=== PATIENT | male | born 1980 | race Caucasian/White ===

== ENCOUNTER 2018-05-04 13:41 | Emergency (ER) | payer SELFPAY ==
[~2018-05-04] VITALS: Ht 177.8 cm; Wt 86.8 kg
[2018-05-04 13:46] VITALS: BP 118/77
--- NOTE | 2018-05-04 13:52 | NUR ---
PT HAS RAISED SKIN SPOTS, ERYTHEMA IN GROIN AREA/INNER THIGH AREA
[2018-05-04 14:44] LABS: BASOPHILS # (AUTO) 0.08 x10^3/uL (0-0.1); BASOPHILS % (AUTO) 1 % (0-1); EOSINOPHILS # (AUTO) 0.11 x10^3/uL (0-0.4); EOSINOPHILS % (AUTO) 1 % (1-7); LYMPHOCYTES # (AUTO) 1.99 x10^3/uL (1-3.4); LYMPHOCYTES % (AUTO) 23 % (22-44); MD NO; MEAN CORPUSCULAR HEMOGLOBIN 31.2 pg (27.5-34.5); MEAN CORPUSCULAR HGB CONC 33.1 g/dL (33.2-36.2); MEAN CORPUSCULAR VOLUME 94.5 fL (81-97); MEAN PLATELET VOLUME 8.1 fL (7.4-10.4); MONOCYTES # (AUTO) 0.71 x10^3/uL (0.2-0.8); MONOCYTES % (AUTO) 8 % (2-9); NEUTROPHILS # (AUTO) 5.89 x10^3/uL (1.8-6.8); NEUTROPHILS % (AUTO) 67 % (42-75); PLATELET COUNT 325 x10^3/uL (130-400); RED BLOOD COUNT 4.78 x10^6/uL (4.38-5.82); RED CELL DISTRIBUTION WIDTH 13.2 % (9.4-14.8)
--- NOTE | 2018-05-04 14:52 | NUR ---
AFTER PA AND MD EXAM, LABS DRAWN
[2018-05-04 14:55] LABS: ALBUMIN 3.8 g/dL (3.4-5.0); ANION GAP 3 mmol/L (5-15); CALCIUM 8.7 mg/dL (8.5-10.1); CHLORIDE 112 mmol/L (98-107)
[2018-05-04 14:59] LABS: ALANINE AMINOTRANSFERASE 48 U/L (12-78); ALKALINE PHOSPHATASE 59 U/L (45-117); BILIRUBIN,TOTAL 0.4 mg/dL (0.2-1.0); CREATININE 1.02 mg/dL (0.7-1.3); TOTAL PROTEIN 7.4 g/dL (6.4-8.2)
== END 2018-05-04 15:30 | disposition home or self-care (01) ==
LOC: ED 14:24
DX: L73.9 Follicular disorder, unspecified (principal)
CPT/HCPCS: 36415; 80053; 85025; 86592; 87806; 99283; G0475

== ENCOUNTER 2019-01-15 19:06 | Emergency (ER) | payer MEDICAID ==
[~2019-01-15] VITALS: Ht 177.8 cm; Wt 67.4 kg
[2019-01-15 19:11] VITALS: BP 117/66
== END 2019-01-15 20:11 | disposition home or self-care (01) ==
LOC: ED 20:00
DX: S39.012A Strain of muscle, fascia and tendon of lower back, initial encounter (principal); F17.200 Nicotine dependence, unspecified, uncomplicated; X58.XXXA Exposure to other specified factors, initial encounter; Y93.89 Activity, other specified; Y92.89 Other specified places as the place of occurrence of the external cause; Y99.8 Other external cause status
CPT/HCPCS: 99283; J7512

== ENCOUNTER 2019-10-18 07:40 | Emergency (ER) | payer MEDICAID ==
[~2019-10-18] VITALS: Ht 177.8 cm; Wt 68.0 kg
[2019-10-18] MEDS ORDERED: SODIUM CHLORIDE 0.9% 1,000 ML IV ONE (07:43)
--- NOTE | 2019-10-18 07:49 | NUR ---
derick. report received from [facility]. pt peed in this am and c/o sudden onset of right sided flank pain. denies any other sx. fentanyl/zofran given bale piler. pt's aox4. resps even and unlabored. pt screeming for pain in room. edmd at bedside evaluating at this time. bp/spo2 monitors in place. call light within reach.
[2019-10-18] MEDS ORDERED: KETOROLAC 30 MG/1 ML ONE (07:51)
[2019-10-18] MEDS ORDERED: SODIUM CHLORIDE FLUSH 10ML SYR IVF ONE (08:00)
[2019-10-18] MEDS ORDERED: PLEASE ENTER HEIGHT AND WEIGHT MC SCH (08:00)
[2019-10-18] MEDS ORDERED: KETOROLAC 30 MG/1 ML IVPush ONE (08:00)
--- NOTE | 2019-10-18 08:02 | NUR ---
pt medicated per emar. ns infusing at this time.
--- NOTE | 2019-10-18 08:02 | NUR ---
urinal at bedside. pt aware of urine sample.
--- NOTE | 2019-10-18 08:07 | NUR ---
pt to ct at this time.
[2019-10-18 08:11] LABS: BASOPHILS # (AUTO) 0.04 x10^3/uL (0-0.1); BASOPHILS % (AUTO) 1 % (0-1); EOSINOPHILS # (AUTO) 0.17 x10^3/uL (0-0.4); EOSINOPHILS % (AUTO) 2 % (1-7); LYMPHOCYTES # (AUTO) 3.35 x10^3/uL (1-3.4); LYMPHOCYTES % (AUTO) 36 % (22-44); MD NO; MEAN CORPUSCULAR HEMOGLOBIN 29.9 pg (27.5-34.5); MEAN CORPUSCULAR HGB CONC 32.7 g/dL (33.2-36.2); MEAN CORPUSCULAR VOLUME 91.5 fL (81-97); MEAN PLATELET VOLUME 7.8 fL (7.4-10.4); MONOCYTES # (AUTO) 0.94 x10^3/uL (0.2-0.8); MONOCYTES % (AUTO) 10 % (2-9); NEUTROPHILS # (AUTO) 4.82 x10^3/uL (1.8-6.8); NEUTROPHILS % (AUTO) 52 % (42-75); PLATELET COUNT 334 x10^3/uL (130-400); RED BLOOD COUNT 4.05 x10^6/uL (4.38-5.82); RED CELL DISTRIBUTION WIDTH 13.9 % (9.4-14.8)
[2019-10-18 08:21] LABS: ALANINE AMINOTRANSFERASE 22 U/L (12-78); ALBUMIN 3.6 g/dL (3.4-5.0); ANION GAP 12 mmol/L (5-15); CALCIUM 8.8 mg/dL (8.5-10.1); CHLORIDE 104 mmol/L (98-107); CREATININE 0.89 mg/dL (0.7-1.3)
[2019-10-18 08:24] LABS: ALKALINE PHOSPHATASE 76 U/L (45-117); BILIRUBIN,TOTAL 0.7 mg/dL (0.2-1.0); TOTAL PROTEIN 7.6 g/dL (6.4-8.2)
--- NOTE | 2019-10-18 08:24 | NUR ---
PT BACK TO ROOM FROM CT.
[2019-10-18 09:03] VITALS: BP 124/77
[2019-10-18] MEDS ORDERED: POTASSIUM CHLORIDE 20 MEQ TAB.ER.PRT PO ONE (09:30)
[2019-10-18] MEDS ORDERED: POTASSIUM CHLORIDE 20 MEQ TAB.ER.PRT ONE (09:40)
--- NOTE | 2019-10-18 09:42 | NUR ---
PT MEDICATED PER EMAR. PT TOLERATED WELL.
--- NOTE | 2019-10-18 09:54 | NUR ---
PT PROVIDED URINE SAMPLE. URINE COLLECTED AND UA SENT.
[2019-10-18 10:00] LABS: MICROSCOPIC INDICATED
--- NOTE | 2019-10-18 10:41 | NUR ---
Patient given discharge instructions and they have confirmed that they understand the instructions. Patient ambulatory with steady gait.
== END 2019-10-18 10:42 | disposition home or self-care (01) ==
LOC: ED 08:37
DX: N13.2 Hydronephrosis with renal and ureteral calculous obstruction (principal); F11.10 Opioid abuse, uncomplicated; K59.00 Constipation, unspecified; E87.6 Hypokalemia; R10.9 Unspecified abdominal pain; F17.200 Nicotine dependence, unspecified, uncomplicated
CPT/HCPCS: 36415; 74176; 80053; 81001; 85025; 87086; 96361; 96374; 99284; J1885; J7030

== ENCOUNTER 2019-12-31 17:41 | Inpatient (IN) | payer MEDICAID ==
[~2019-12-31] VITALS: Ht 177.8 cm; Wt 69.8 kg
--- NOTE | 2019-12-31 19:26 | NUR ---
PT CAME IN CO OF RIGHT LEG SWELLING, REDNESS AND PAIN. WAS ADMITTED TO [facility] A FEW DAYS AGO FOR CELLULITIS BUT LEFT AMA. WHEN ASKED WHY HE LEFT AMA HE SAID "I HAVE CHEMICAL DEPENDENCIES". PT ADMITS TO USING HEROIN BEFORE HE CAME TO ER TODAY. PT RESTING IN [facility]. AWAITING
[2019-12-31] MEDS ORDERED: VANCOMYCIN 1,800 MG in SODIUM CHLORIDE 0.9% 250 ML IV ONE ×2 (20:00→22:30)
[2019-12-31] MEDS ORDERED: MORPHINE SULFATE 4 MG/ML, 1ML IVPush ONE (20:00)
[2019-12-31] MEDS ORDERED: VANCOMYCIN PER PHARMACY MC PRN ×3 (20:00→22:25)
[2019-12-31] MEDS ORDERED: AMPICILLIN/SULBACTAM 3 GM in SODIUM CHLORIDE 0.9% 100 ML IV ONE (20:00)
[2019-12-31] MEDS ORDERED: MORPHINE SULFATE 4 MG/ML, 1ML ONE (20:05)
--- NOTE | 2019-12-31 20:29 | NUR ---
SINCE PT HAD BLOOD CULUTRES DRAWN RECENTLY. FELT THEY DID NOT NEED TO BE DRAWN THIS VISIT. IV ABX INFUSING AT THIS TIME
[2019-12-31 20:49] LABS: ALANINE AMINOTRANSFERASE 22 U/L (12-78); ALBUMIN 2.9 g/dL (3.4-5.0); ANION GAP 5 mmol/L (5-15); CALCIUM 9.2 mg/dL (8.5-10.1); CHLORIDE 103 mmol/L (98-107); CREATININE 0.69 mg/dL (0.7-1.3)
[2019-12-31 20:50] LABS: BASOPHILS % (AUTO) 0 % (0-1); EOSINOPHILS % (AUTO) 1 % (1-7); LYMPHOCYTES % (AUTO) 24 % (22-44); MEAN CORPUSCULAR HGB CONC 33.2 g/dL (33.2-36.2); MEAN PLATELET VOLUME 7.7 fL (7.4-10.4); MONOCYTES % (AUTO) 12 % (2-9); NEUTROPHILS % (AUTO) 62 % (42-75); PLATELET COUNT 305 x10^3/uL (130-400); RED BLOOD COUNT 3.93 x10^6/uL (4.38-5.82); RED CELL DISTRIBUTION WIDTH 14.5 % (9.4-14.8)
[2019-12-31 20:51] LABS: ALKALINE PHOSPHATASE 74 U/L (45-117); BILIRUBIN,TOTAL 0.3 mg/dL (0.2-1.0)
[2019-12-31 21:00] VITALS: BP 107/69
[2019-12-31 21:01] LABS: MD NO
[2019-12-31] MEDS ORDERED: TRAZODONE 50MG TABLET PO PRN (22:00)
[2019-12-31] MEDS ORDERED: AMPICILLIN/SULBACTAM 3 GM in SODIUM CHLORIDE 0.9% 100 ML IV SCH (22:00)
[2019-12-31] MEDS ORDERED: ONDANSETRON 2MG/ML, 2ML IVPush PRN (22:00)
[2019-12-31] MEDS ORDERED: ACETAMINOPHEN 325 MG TABLET PO PRN (22:00)
[2019-12-31] MEDS ORDERED: LABETALOL 5MG/ML, 20ML IVPush PRN (22:00)
[2019-12-31] MEDS ORDERED: METHOCARBAMOL 500 MG TABLET PO PRN (22:00)
[2019-12-31] MEDS ORDERED: morphine SULFATE 10 MG/ML, 1ML IVPush PRN (22:00)
[2019-12-31] MEDS: OXYcodone IR 5MG TABLET PO PRN (22:29)
[2019-12-31] MEDS ORDERED: PHARMACOKINETIC MONITORING MC PRN (22:30)
[2019-12-31] MEDS: ENOXAPARIN 40 MG/0.4 ML SQ SCH (22:30)
[2019-12-31] MEDS ORDERED: PHARMACOKINETIC CONSULTATION MC ONE (22:30)
[2019-12-31] MEDS ORDERED: NICOTINE 21 MG/24 HR PATCH.TD24 TD ONE (23:30)
[2020-01-01 02:00] VITALS: BP 107/66
[2020-01-01] MEDS: AMPICILLIN/SULBACTAM 3 GM in SODIUM CHLORIDE 0.9% 100 ML IV SCH ×4 (02:07→21:55)
[2020-01-01 05:28] LABS: BASOPHILS % (AUTO) 1 % (0-1); EOSINOPHILS % (AUTO) 3 % (1-7); LYMPHOCYTES % (AUTO) 29 % (22-44); MEAN CORPUSCULAR HEMOGLOBIN 29.1 pg (27.5-34.5); MEAN CORPUSCULAR HGB CONC 33.1 g/dL (33.2-36.2); MEAN PLATELET VOLUME 7.8 fL (7.4-10.4); MONOCYTES % (AUTO) 13 % (2-9); NEUTROPHILS % (AUTO) 54 % (42-75); PLATELET COUNT 286 x10^3/uL (130-400); RED BLOOD COUNT 3.68 x10^6/uL (4.38-5.82); RED CELL DISTRIBUTION WIDTH 14.6 % (9.4-14.8)
[2020-01-01 05:36] LABS: ANION GAP 6 mmol/L (5-15); CALCIUM 8.5 mg/dL (8.5-10.1); CHLORIDE 105 mmol/L (98-107); CREATININE 0.57 mg/dL (0.7-1.3)
[2020-01-01 05:39] LABS: MD NO
[2020-01-01] MEDS: OXYcodone IR 5MG TABLET PO PRN ×2 (06:14→22:49)
[2020-01-01 09:09] VITALS: BP 99/64
[2020-01-01] MEDS: SENNA/DOCUSATE TABLET PO SCH (09:47)
[2020-01-01] MEDS: VANCOMYCIN 1,500 MG in SODIUM CHLORIDE 0.9% 250 ML IV SCH (11:02)
[2020-01-01 14:46] VITALS: BP 109/72
[2020-01-01 19:28] VITALS: BP 114/72
[2020-01-01] MEDS: ENOXAPARIN 40 MG/0.4 ML SQ SCH (21:55)
[2020-01-02] MEDS: VANCOMYCIN 1,500 MG in SODIUM CHLORIDE 0.9% 250 ML IV SCH (00:45)
[2020-01-02 02:05] VITALS: BP 126/71
[2020-01-02] MEDS: OXYcodone IR 5MG TABLET PO PRN ×2 (02:48→06:45)
[2020-01-02] MEDS: AMPICILLIN/SULBACTAM 3 GM in SODIUM CHLORIDE 0.9% 100 ML IV SCH ×2 (02:48→09:06)
[2020-01-02 05:47] LABS: BASOPHILS % (AUTO) 1 % (0-1); EOSINOPHILS % (AUTO) 1 % (1-7); LYMPHOCYTES % (AUTO) 27 % (22-44); MEAN CORPUSCULAR HGB CONC 33.3 g/dL (33.2-36.2); MEAN PLATELET VOLUME 7.3 fL (7.4-10.4); MONOCYTES % (AUTO) 10 % (2-9); NEUTROPHILS % (AUTO) 61 % (42-75); PLATELET COUNT 372 x10^3/uL (130-400); RED CELL DISTRIBUTION WIDTH 14.4 % (9.4-14.8)
[2020-01-02 06:00] LABS: CHLORIDE 109 mmol/L (98-107)
[2020-01-02 06:06] LABS: ANION GAP 5 mmol/L (5-15); CALCIUM 8.9 mg/dL (8.5-10.1); CREATININE 0.58 mg/dL (0.7-1.3)
[2020-01-02 06:08] LABS: MD NO
[2020-01-02 08:47] VITALS: BP 111/72
[2020-01-02] MEDS: SENNA/DOCUSATE TABLET PO SCH (09:05)
[2020-01-02] MEDS ORDERED: VANCOMYCIN 1,200 MG in SODIUM CHLORIDE 0.9% 250 ML IV SCH (09:30)
[2020-01-02] MEDS ORDERED: LACTATED RINGERS 1,000 ML IV SCH (10:30)
== END 2020-01-02 11:27 | disposition left against medical advice (07) | DRG 603 ==
LOC: ED 19:12 → EDIP 19:45 → 3N 21:49
PROVIDERS: ADMIT Family Medicine; ATTEND Hospitalist
DX: L03.115 Cellulitis of right lower limb (principal); F17.200 Nicotine dependence, unspecified, uncomplicated; F11.90 Opioid use, unspecified, uncomplicated; F15.90 Other stimulant use, unspecified, uncomplicated; K75.9 Inflammatory liver disease, unspecified; L25.9 Unspecified contact dermatitis, unspecified cause; F17.210 Nicotine dependence, cigarettes, uncomplicated; Z87.442 Personal history of urinary calculi; Z79.899 Other long term (current) drug therapy
CPT/HCPCS: 36415; 80048; 80053; 83605; 83735; 84100; 85025; 96374; 96375; G0378; J0295; J1650; J2405; J3370; J2270; J7050